=== PATIENT | male | born 1990 | race Caucasian/White ===

== ENCOUNTER 2024-01-10 06:56 | Emergency (ER) | payer SELFPAY ==
[~2024-01-10] VITALS: Ht 188 cm; Wt 96.0 kg
[2024-01-10 07:33] VITALS: O2SAT 99
[2024-01-10 10:44] VITALS: BP 139/84; PULSE 65; RESP 17; TEMP 98
== END 2024-01-10 10:47 | disposition home or self-care (01) ==
LOC: ER 06:56
DX: F41.9 Anxiety disorder, unspecified (principal); R06.02 Shortness of breath
CPT/HCPCS: 71045; 99283